=== PATIENT | female | born 1985 | race Two or more races ===

== ENCOUNTER 2017-03-06 07:56 | Emergency (ER) | payer MEDICAID, OTHER ==
[2017-03-06 08:25] VITALS: BP 124/69
[2017-03-06] MEDS ORDERED: SODIUM CHLORIDE 0.9% 1,000 ML IV ONE (08:40)
[2017-03-06] MEDS ORDERED: NITR-48 PO (09:30)
== END 2017-03-06 09:38 | disposition home or self-care (01) ==
LOC: ER 07:56
DX: R10.9 Unspecified abdominal pain (principal); Z97.5 Presence of (intrauterine) contraceptive device

== ENCOUNTER 2019-02-01 18:48 | Emergency (ER) | payer MEDICAID ==
[~2019-02-01] VITALS: Ht 157.5 cm; Wt 81.6 kg
[~2019-02-01 18:48] MED LIST: NITR100C44 PO
[2019-02-01 18:53] VITALS: BP 121/75
== END 2019-02-01 20:24 | disposition left against medical advice (07) ==
LOC: ER 18:51
DX: R21 Rash and other nonspecific skin eruption (principal); Z53.21 Procedure and treatment not carried out due to patient leaving prior to being seen by health care provider